=== PATIENT | female | born 2000 | race Caucasian/White ===

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

== ENCOUNTER 2018-02-09 09:24 | Day surgery (SDC) | payer OTHER ==
[2018-02-09 10:03] LABS: CONTROL LINE UCG INT CTR LINE PRESENT; URINE PREG TEST NEGATIVE (NEGATIVE)
[2018-02-09] MEDS ORDERED: MIDAZOLAM INJ 2 MG/2 ML VIAL (J2250) As Ordered (11:33)
[2018-02-09] MEDS ORDERED: fentaNYL 250 MCG/5 ML INJECTION (J3010) As Ordered (11:36)
[2018-02-09] MEDS ORDERED: dexameTHASONE 4 MG/ML 1ML VIAL (J1100) As Ordered ×2 (12:03)
[2018-02-09] MEDS ORDERED: ONDANSETRON 4MG/2ML VIAL (J2405) As Ordered (12:03)
[2018-02-09] MEDS ORDERED: SUCCINYLCHOLINE 100 MG/5 ML SYRINGE (J0330) As Ordered (12:03)
[2018-02-09] MEDS ORDERED: LIDOCAINE 2% INJ 100 MG/5 ML SDV (FOR ANES.) As Ordered (12:03)
[2018-02-09] MEDS ORDERED: PROPOFOL 200 MG/20 ML VIAL As Ordered (12:03)
[2018-02-09] MEDS: LIDOCAINE 1% MDV 20ML VIAL As Ordered (12:11)
[2018-02-09] MEDS: BUPIVACAINE HCL 0.25% 10 ML VIAL As Ordered (12:11)
[2018-02-09] MEDS ORDERED: LR 1,000 ML IV (12:45)
[2018-02-09] MEDS ORDERED: ONDANSETRON 4MG/2ML VIAL (J2405) IV (12:45)
[2018-02-09] MEDS ORDERED: IBUPROFEN 100 MG/5 ML SUSP UDC DYE FREE As Ordered (13:05)
[2018-02-09] MEDS: IBUPROFEN 100 MG/5 ML SUSP UDC DYE FREE PO (13:07)
[2018-02-09] MEDS ORDERED: IBUPROFEN 600 MG TAB PO (13:30)
== END 2018-02-09 14:20 | disposition home or self-care (01) ==
LOC: M SDC 09:24
DX: J35.01 Chronic tonsillitis (principal); J45.909 Unspecified asthma, uncomplicated; Z79.899 Other long term (current) drug therapy; Z79.51 Long term (current) use of inhaled steroids
CPT/HCPCS: 42826

== ENCOUNTER → 2018-09-28 | Outpatient (CLI) | payer OTHER ==
[~2018-09-28] MED LIST: PROAAER10 INH; SUDATAB18 PO; TRIN1TAB2 PO
--- NOTE | 2018-09-28 16:26 | REP ---
AP PELVIS AND BILATERAL HIPS: HISTORY: Pain. COMPARISON: None. A single AP view of the pelvis was performed. The hip joint spaces are symmetric and relatively well maintained. There is no acute fracture or destructive osseous lesion. There is a T-shaped radiodensity in the pelvic soft tissues consistent with an IUD. The right hip joint space is symmetric and relatively well maintained. There is no acute or destructive osseous lesion. The left hip joint space is symmetric and relatively well maintained. There is no acute or destructive osseous lesion. Electronically Signed by Jaya Vaughan DO 09/28/2018 04:58 P
== END ==
LOC: M SMT 14:02
PROVIDERS: ATTEND Family Medicine
DX: M25.551 Pain in right hip (principal); M25.552 Pain in left hip

== ENCOUNTER → 2024-11-01 | Outpatient (CLI) | payer OTHER ==
[~2024-11-01] MED LIST changes: +BUPR-597 PO; +IBUP-1022 PO; +ONDA-83 PO; +THERTAB52 PO; +mirena IU
== END ==
LOC: M RAD 08:37
PROVIDERS: ATTEND Internal Medicine Gastroenterology
DX: T18.3XXA Foreign body in small intestine, initial encounter (principal)